=== PATIENT | female | born 1955 ===

== ENCOUNTER 2017-09-13 06:15 | Emergency (ER) | payer OTHER ==
[2017-09-13 06:15] VITALS: BMI 34.0
[2017-09-13 06:27] VITALS: TEMP 98.5
[2017-09-13] MEDS ORDERED: Naproxen 550 mg Tab PO STA (07:25)
[2017-09-13] MEDS ORDERED: Naproxen 275 mg Tab PO ONE (07:34)
--- NOTE | 2017-09-13 08:06 | C.PDOC ---
History Of Present Illness 62-year-old female presents to the emergency department with complaints of non- traumatic right hip pain x4 days. She states pain worsens with ambulation, and describes the pain as sharp and non-radiating. Patient has seen her PMD for this pain. She denies falls/injuries, sensory changes, back pain, dysuria/ hematuria, abdominal pain. Time Seen by Provider: 09/13/17 07:04 Chief Complaint (Nursing): Hip Pain History Per: Patient History/Exam Limitations: no limitations Onset/Duration Of Symptoms: Days Current Symptoms Are (Timing): Still Present Severity: Moderate Past Medical History Reviewed: Historical Data, Nursing Documentation, Vital Signs Vital Signs: Last Vital Signs Temp 98.5 F 09/13/17 06:24 Pulse 80 09/13/17 09:25 Resp 20 09/13/17 09:25 BP 134/70 09/13/17 09:25 Pulse Ox 100 09/13/17 09:25 - Medical History PMH: HTN, Hypercholesterolemia Family History: States: No Known Family Hx - Social History Hx Alcohol Use: No Hx Substance Use: No - Immunization History Hx Tetanus Toxoid Vaccination: No Hx Influenza Vaccination: No Hx Pneumococcal Vaccination: No Review Of Systems Constitutional: Negative for: Fever, Chills Cardiovascular: Negative for: Chest Pain Respiratory: Negative for: Shortness of Breath Gastrointestinal: Negative for: Nausea, Vomiting, Abdominal Pain, Diarrhea Genitourinary: Negative for: Dysuria, Hematuria Musculoskeletal: Positive for: Other (right hip pain). Negative for: Back Pain Neurological: Negative for: Weakness, Numbness Physical Exam - Physical Exam Appears: Well, Non-toxic, No Acute Distress Skin: Normal Color, Warm, Dry, No Rash Head: Atraumatic, Normacephalic Oral Mucosa: Moist Neck: Normal Cardiovascular: Rhythm Regular Respiratory: Normal Breath Sounds, No Rales, No Rhonchi, No Wheezing Gastrointestinal/Abdominal: Normal Exam, Bowel Sounds, Soft, No Tenderness Extremity: Normal ROM, No Pedal Edema, No Calf Tenderness, No Deformity, No Swelling, Other (right hip/pelvis tenderness to palpation, (+) worsening pain with abduction/adduction of hip ) Extremity: Bilateral: Atraumatic, Normal Color And Temperature Pulses: Left Dorsalis Pedis: Normal, Right Dorsalis Pedis: Normal Neurological/Psych: Oriented x3, Normal Sensation ED Course And Treatment O2 Sat by Pulse Oximetry: 97 (RA) Pulse Ox Interpretation: Normal - Other Rad right hip/pelvis xray X-Ray: Interpreted by Me, Viewed By Me (no fractures/dislocations) Progress Note: Patient given PO Naprosyn. Xrays of hip ordered and reviewed. Reevaluation Time: 09:00 Reassessment Condition: Improved (On reassesment, patient is resting comfortably and states pain has improved. Patient is able to ambulate normally in ED. Xray (-) for acute bony injury. Patient given Rx for Naprosyn and instructed to follow up with orthopedics within 1 week. She understands she should return to ED if symptoms worsen.) Disposition Counseled Patient/Family Regarding: Studies Performed, Diagnosis, Need For Followup, Rx Given - Disposition Referrals: German Law MD [Primary Care Provider] - Callum Nash III, MD [Staff Provider] - [facility] [place] [Outside] Disposition: HOME/ ROUTINE Disposition Time: 09:00 Condition: STABLE Additional Instructions: FOLLOW UP WITH ORTHOPEDICS WITHIN 1 WEEK USE MEDICATION DIRECTED RETURN TO ER IF SYMPTOMS WORSEN Prescriptions: Naproxen 375 mg PO BID PRN #20 tablet PRN Reason: pain Instructions: Hip Pain (DC) Forms: [employer] (Setswana) Print Language: BELARUSIAN - POA Present On Arrival: None - Clinical Impression Clinical Impression: Right hip pain, Osteoarthritis - Scribe Statement The provider has reviewed the documentation as recorded by the Scribe (Mehrdad Kenney) All medical record entries made by the Scribe were at my direction and personally dictated by me. I have reviewed the chart and agree that the record accurately reflects my personal performance of the history, physical exam, medical decision making, and the department course for this patient. I have also personally directed, reviewed, and agree with the discharge instructions and disposition.
[2017-09-13 09:25] VITALS: BP 134/70; PULSE 80; RESP 20
--- NOTE | 2017-09-13 09:54 | RAD ---
PROCEDURE: Radiographs of the pelvis and bilateral hips HISTORY: right hip/pelvis pain COMPARISON: None. FINDINGS: BONES: Pelvis: Unremarkable. Right hip:Unremarkable. Left hip:Unremarkable. JOINTS: Right hip: Unremarkable. Left hip: Unremarkable. Sacroiliac Joints: Unremarkable. Pubic symphysis: Unremarkable. SOFT TISSUES: Normal. OTHER FINDINGS: None. IMPRESSION: Unremarkable radiographs of the hips and pelvis.
[2017-09-16 04:11] VITALS: O2SAT 97
== END 2017-09-13 09:25 | disposition home or self-care (01) ==
LOC: SUPCPDRO 06:15 → C.ER 06:15
DX: M16.11 Unilateral primary osteoarthritis, right hip (principal); M25.551 Pain in right hip

== ENCOUNTER 2017-12-04 16:49 | Emergency (ER) | payer OTHER ==
[2017-12-04 16:52] VITALS: BMI 29.2
[2017-12-04 17:05] VITALS: RESP 16
[2017-12-04] MEDS ORDERED: Sodium Chloride 0.9% 1,000 ML IV SCH (17:45)
[2017-12-04] MEDS ORDERED: Sodium Chloride 0.9% 1,000 ML ONE (18:13)
--- NOTE | 2017-12-04 18:21 | CT ---
Date of service: 12/04/2017 PROCEDURE: CT HEAD WITHOUT CONTRAST. HISTORY: confusion, elderly DM/HTN ? subacute CVA COMPARISON: 05/31/2017. TECHNIQUE: Axial computed tomography images were obtained through the head/brain without intravenous contrast. Radiation dose: Total exam DLP = 1653.53 mGy-cm. This CT exam was performed using one or more of the following dose reduction techniques: Automated exposure control, adjustment of the mA and/or kV according to patient size, and/or use of iterative reconstruction technique. FINDINGS: HEMORRHAGE: No intracranial hemorrhage. BRAIN: No mass effect or edema. Wedge-shaped low-attenuation area of watershed region posterior left parietal lobe. No appreciable edema or mass effect. This represents a new finding compared to the prior study and likely encephalomalacia change related to prior/recent cortical infarction. VENTRICLES: Unremarkable. No hydrocephalus. CALVARIUM: Unremarkable. PARANASAL SINUSES: Unremarkable as visualized. No significant inflammatory changes. MASTOID AIR CELLS: Unremarkable as visualized. No inflammatory changes. OTHER FINDINGS: None. IMPRESSION: Findings in the posterior left parietal region likely the sequela of cortical infarction, a finding not seen previously. No evidence of hemorrhage. No extra-axial fluid collections, mass lesion or mass effect.
--- NOTE | 2017-12-04 18:24 | RAD ---
Date of service: 12/04/2017 HISTORY: Code Stroke COMPARISON: Chest radiograph dated 04/15/2016. FINDINGS: LUNGS: No active pulmonary disease. PLEURA: No significant pleural effusion identified, no pneumothorax apparent. CARDIOVASCULAR: Atherosclerotic aortic calcifications. Cardiomediastinal silhouette stably prominent. OSSEOUS STRUCTURES: Unchanged. VISUALIZED UPPER ABDOMEN: Normal. OTHER FINDINGS: None. IMPRESSION: No active disease.
[2017-12-04 18:30] LABS: BASO % 0.5 % (0.0-2.0); EOS # 0.1 K/uL (0.0-0.7); EOS % 0.8 % (0.0-4.0); HEMOGLOBIN 13.1 g/dL (11.0-16.0); LYMPH # 3.3 K/uL (1.0-4.3); LYMPH % 41.8 % (20.0-40.0); MEAN CORPUSCULAR HEMOGLOBIN 28.5 pg (27.0-31.0); MEAN CORPUSCULAR HGB CONC 33.5 g/dL (33.0-37.0); MEAN PLATELET VOLUME 8.5 fL (7.2-11.7); MONO # 0.5 K/uL (0.0-0.8); MONO % 5.8 % (0.0-10.0); NEUT # 4.1 K/uL (1.8-7.0); NEUT % 51.1 % (50.0-75.0); NRBC % 0.1 % (0.0-2.0); RBC 4.6 Mil/uL (3.80-5.20); RED CELL DISTRIBUTION WIDTH 13.2 % (11.5-14.5)
[2017-12-04 18:34] VITALS: PULSE 70
[2017-12-04 18:39] LABS: PROTHROMBIN TIME 11.4 SECONDS (9.7-12.2)
[2017-12-04 18:48] LABS: ALB/GLOB RATIO 1.4 (1.0-2.1); ALBUMIN 4.1 g/dL (3.5-5.0); ALT/SGPT 25 U/L (9-52); AST/SGOT 13 U/L (14-36); BLOOD UREA NITROGEN 13 mg/dL (7-17); CALCIUM 9.1 mg/dl (8.6-10.4); GFR AFRICAN-AMERICAN > 60; GFR NON-AFRICAN AMERICAN > 60; HDL CHOLESTEROL 39 mg/dL (30-70)
--- NOTE | 2017-12-04 18:55 | C.PDOC ---
History Of Present Illness 62 year old female is brought to the ED by family for evaluation, stating patient has become increasingly depressed, anxious, and has been experiencing word-finding difficulties over the last few months. Patient was evaluated by Dr. Taylor and was started on Donepezil for presumed Alzheimer's and Dementia. She was referred for an outpatient MRI, but was unable to tolerate it due to her Anxiety and Claustrophobia. Patient had a normal Head CT in May 2017. Patient has history of Diabetes and was recently started on Glargine. Patient's family stopped her Metformin BID. Patient's finger stick at home ranges from 250 -350. Patient is able to answer a couple questions, additional history obtained from her and son who are at bedside. PMD: Dr. German Law Time Seen by Provider: 12/04/17 17:13 Chief Complaint (Nursing): Medical Clearance History Per: Patient, Family History/Exam Limitations: no limitations Onset/Duration Of Symptoms: Other (few months ) Current Symptoms Are (Timing): Still Present Additional History Per: Patient, Family Past Medical History Reviewed: Historical Data, Nursing Documentation, Vital Signs Vital Signs: Last Vital Signs Temp 97.7 F 12/04/17 19:53 Pulse 70 12/04/17 19:53 Resp 16 12/04/17 19:53 BP 178/83 H 12/04/17 19:53 Pulse Ox 98 12/04/17 21:30 - Medical History PMH: HTN, Hypercholesterolemia Denies: Chronic Kidney Disease Surgical History: No Surg Hx Family History: States: Unknown Family Hx - Social History Hx Alcohol Use: No Hx Substance Use: No - Immunization History Hx Tetanus Toxoid Vaccination: No Hx Influenza Vaccination: No Hx Pneumococcal Vaccination: No Review Of Systems Constitutional: Positive for: Other (normal appetite, poor mood ) Neurological: Positive for: Other (forgetful, word-finding difficulties ) Psych: Positive for: Anxiety, Depression Physical Exam - Physical Exam Appears: Non-toxic, No Acute Distress Skin: Normal Color, Warm, Dry Head: Atraumatic, Normacephalic Eye(s): bilateral: Normal Inspection Oral Mucosa: Moist Neck: Supple Chest: Symmetrical, No Deformity, No Tenderness Cardiovascular: Rhythm Regular Respiratory: Normal Breath Sounds, No Rales, No Rhonchi, No Wheezing Gastrointestinal/Abdominal: Soft, No Tenderness Neurological/Psych: Oriented x3, Normal Speech, Normal Cognition, Other (flat affect ) ED Course And Treatment - Laboratory Results Result Diagrams: 12/04/17 18:23 12/04/17 18:23 Lab Interpretation: Normal (trop neg, BNP neg, A1C 10.3) ECG: Interpreted By Me ECG Rhythm: Sinus Rhythm O2 Sat by Pulse Oximetry: 98 (on RA) Pulse Ox Interpretation: Normal - Radiology CXR: Interpreted by Me CXR Interpretation: Yes: No Acute Disease - CT Scan/US head CT Other Rad Studies (CT/US): Interpreted By Me, Radiology Report Reviewed (new L posterior parietal sub-acute infarct vs encephalomalacia is CHANGED c/w CT ) Progress Note: Bloodwork, urinalysis, CT Head, CXR, and EKG ordered and reviewed. Aspirin PO and IV fluids given. Call placed to Dr. Law's service at 1900, with no reply. Reevaluation Time: 19:29 Reassessment Condition: Unchanged (calm, cooperative, flat affect) Medical Decision Making Medical Decision Making: changes of declining mental status and flat affect/dementia which has NOT responded well to Donepezil (for dementia) as Rx'd by Dr. Taylor. May be more c/w subacute infarct L parietal are, a new finding since CT 06/01 Recommend d/c Donepezil and neuro f/u. pt unable to have outpatient MRI due to anxiety/claustrophobia, may need gentle sedation for same. Disposition Doctor Will See Patient In The: Office Counseled Patient/Family Regarding: Studies Performed, Diagnosis - Disposition Referrals: German Law MD [Staff Provider] - Trent Taylor MD [Staff Provider] - Disposition: HOME/ ROUTINE Disposition Time: 19:33 Condition: GOOD Additional Instructions: Subacute Stroke: Continue Aspirin 325 mg daily Follow-up with Dr. Taylor- Call for an appointment Dementia/Depression: STOP taking Donepezil Dr. Taylor may prescribe a more suitable medication Diabetes: Hgb A1C 10.3 (very high) Continue Glargine insulin (injections), 24 units @ night (instead of 12 units twice a day) RESTART Metformin 1000 mg twice a day with meals. Check Finger Sticks PRIOR to Breakfast and PRIOR to Dinner Write values in a small book and bring to all outpatient visits. Do NOT check Finger sticks AFTER meals (will always be very high) Prescriptions: MetFORMIN [glucoPHAGE] 1,000 mg PO BID #60 tab Instructions: Type 2 Diabetes, Dementia (Including Alzheimer Disease), Stroke ( DC) Forms: [employer] (Pashto) - Clinical Impression Clinical Impression: Focal infarction of brain, Dementia - Scribe Statement The provider has reviewed the documentation as recorded by the Scribe (Kitty Guerrero) Provider Attestation: All medical record entries made by the Scribe were at my direction and personally dictated by me. I have reviewed the chart and agree that the record accurately reflects my personal performance of the history, physical exam, medical decision making, and the department course for this patient. I have also personally directed, reviewed, and agree with the discharge instructions and disposition.
[2017-12-04 18:59] LABS: LDL CHOLESTEROL 92 mg/dL (0-129)
[2017-12-04 19:03] LABS: B-TYPE NATRIURETIC PEPTIDE 231 pg/mL (0-900)
[2017-12-04 19:14] LABS: SQUAMOUS EPITHIAL 2 /hpf (0-5); URINE BILIRUBIN NEGATIVE (NEGATIVE); URINE BLOOD 1+ (NEGATIVE); URINE CLARITY Clear (Clear); URINE COLOR Straw (YELLOW); URINE GLUCOSE (UA) 3+ mg/dL (Normal); URINE LEUKOCYTE ESTERASE 1+ Leu/uL (Negative); URINE PROTEIN 2+ mg/dL (NEGATIVE); URINE UROBILINOGEN NORMAL mg/dL (0.2-1.0)
[2017-12-04 19:55] VITALS: BP 178/83; TEMP 97.7
[2017-12-04 21:03] VITALS: O2SAT 98
--- NOTE | 2017-12-05 21:37 | CARD ---
APPROVED REPORT Date of service: 12/04/2017 EKG Measurement Heart [id number] <Conclusion> Normal sinus rhythm Normal ECG
== END 2017-12-04 20:06 | disposition home or self-care (01) ==
LOC: C.ER 16:49
DX: I63.9 Cerebral infarction, unspecified (principal); F03.90 Unspecified dementia, unspecified severity, without behavioral disturbance, psychotic disturbance, mood disturbance, and anxiety; I10 Essential (primary) hypertension; E78.00 Pure hypercholesterolemia, unspecified; E11.9 Type 2 diabetes mellitus without complications; Z79.4 Long term (current) use of insulin
CPT/HCPCS: 70450; 71045; 80053; 80061; 81001; 82948; 83036; 83880; 84484; 85025; 85610; 85730; 93005; 99283; J7030